=== PATIENT | male | born 1950 | race Caucasian/White ===

== ENCOUNTER 2021-05-05 07:17 | Observation (INO) | payer MEDICARE ==
[2021-05-03 11:35] LABS: BASOPHILS % 0.8 % (0.0-1.0); EOSINOPHILS # (AUTO) 0.2 (0.0-0.4); EOSINOPHILS % 3.2 % (0.0-6.0); HEMATOCRIT 41.8 % (38.2-49.6); HEMOGLOBIN 13.1 g/dL (14.0-18.0); MEAN CORPUSCULAR HGB CONC 31.3 g/dL (31-35); MEAN CORPUSCULAR VOLUME 79.9 fL (81-99); MONOCYTES # (AUTO) 0.4 (0.2-0.8); MONOCYTES % 8.4 % (4.4-11.3); NEUTROPHILS # (AUTO) 3.2 (2.1-6.9); PLATELET COUNT 183 x10e3/uL (140-360); RED BLOOD COUNT 5.23 x10e6/uL (4.3-5.7); RED CELL DISTRIBUTION WIDTH 14.9 % (11.7-14.4)
[2021-05-03 11:46] LABS: INR 0.92; PROTHROMBIN TIME 13.1 seconds (11.9-14.5)
[2021-05-03 11:47] LABS: PARTIAL THROMBOPLASTIN TIME 25.8 seconds (23.8-35.5)
[2021-05-03 11:54] LABS: ANION GAP 16.6 mmol/L (8-16); CALCIUM 8.9 mg/dL (8.4-10.2); CREATININE, SERUM 1.85 mg/dL (0.72-1.25); POTASSIUM 4.6 mmol/L (3.5-5.1)
[~2021-05-05] VITALS: Ht 172.7 cm; Wt 70.3 kg
[~2021-05-05 07:17] MED LIST: ACETAMINOPHEN 1000 MG/100 ML 100 ML IV ONE; ALEVE220 MG PO; ALTOPREV40 MG PO; GLIMEPIRIDE4 MG PO; LIDOCAINE 1% W/EPINEPHRINE 20 ML VIAL ONE; NOVOLOG MI100 UNIT/1 SC; THROMBIN FOR SOLN 5,000 UNIT VIAL ONE; ULTRAM 50MG50 MG PO; Vancomycin IV 1 GM VIAL ONE; ZEGRID PO
[2021-05-05] MEDS ORDERED: SODIUM CHLORIDE 0.9% 50ML 100 ML ONE (08:17)
[2021-05-05] MEDS ORDERED: EDARBI40 MG PO (08:30)
[2021-05-05] MEDS ORDERED: HYDROCODON-ACE1 EA12 PO (11:12)
[2021-05-05] MEDS ORDERED: TRAMADOL HCL 50 MG TAB PO SCH (11:15)
[2021-05-05] MEDS ORDERED: CEPACOL SORE THROAT LOZENGES PO PRN (11:15)
[2021-05-05] MEDS ORDERED: Morphine 10mg syringe 10 MG/ML INJ IM PRN (11:15)
[2021-05-05] MEDS ORDERED: CARISOPRODOL 350 MG TAB PO PRN (11:15)
[2021-05-05] MEDS ORDERED: ZOLPIDEM TARTRATE 5 MG TAB PO PRN (11:15)
[2021-05-05] MEDS ORDERED: PROMETHAZINE HCL (IM) 25 MG/ML VIAL IM PRN (11:15)
[2021-05-05] MEDS ORDERED: HYDROMORPHONE 2MG/ML 2 MG/ML ML IV PRN (11:15)
[2021-05-05] MEDS ORDERED: MAGNESIUM/ALUMINUM/SIMETHICONE 30 ML UDC PO PRN (11:15)
[2021-05-05] MEDS ORDERED: DEXTROSE 50% SYRINGE 50 ML IV PRN ×2 (11:15→17:45)
[2021-05-05] MEDS ORDERED: ACETAMINOPHEN 325 MG TAB PO PRN (11:15)
[2021-05-05 12:06] VITALS: BP 153/81
[2021-05-05 12:08] VITALS: BP 153/81
[2021-05-05] MEDS ORDERED: DEXAMETHASONE SOD PHOS INJ 4 MG/ML SDV ONE (12:50)
[2021-05-05] MEDS ORDERED: PROPOFOL IV EMULSION 10 MG/ML 20 ML VIAL ONE (12:50)
[2021-05-05] MEDS ORDERED: DESFLURANE 240 ML BTL INH ONE (12:50)
[2021-05-05] MEDS ORDERED: PHENYLEPHRINE HCL 1% 10 MG/ML VIAL ONE (12:50)
[2021-05-05] MEDS ORDERED: LIDOCAINE HCL 2% LOCAL INJ 5 ML SDV VIAL INJ ONE (12:50)
[2021-05-05] MEDS ORDERED: POVIDONE IODINE 0.05% 0.05 % ML PO ONE (12:50)
[2021-05-05] MEDS ORDERED: ROCURONIUM BROMIDE 10 MG/ML 5ML VIAL IV ONE (12:50)
[2021-05-05] MEDS ORDERED: ONDANSETRON HCL INJ 2MG/ML 2ML 2 MG/ML VIAL ONE (12:50)
[2021-05-05] MEDS: OXYCODONE/ACETAMINOPHEN 5-325 1 EACH TABLET PO PRN (13:15)
[2021-05-05] MEDS: LACTATED RINGER'S 1,000 ML IV SCH (15:27)
[2021-05-05] MEDS: INSULIN ASPART 70/30 100 UNITS/ML VIAL SC SCH (15:28)
[2021-05-05 15:57] VITALS: BP 140/85
[2021-05-05] MEDS: Cefazolin 1 GM in SODIUM CHLORIDE 0.9% 50ML 50 ML IV SCH (17:11)
[2021-05-05] MEDS ORDERED: MIDAZOLAM HCL 2 MG/2 ML VIAL ONE (17:16)
[2021-05-05] MEDS ORDERED: FENTANYL CITRATE/PF 100MCG/2 ML INJ ONE (17:16)
[2021-05-05] MEDS: ONDANSETRON HCL INJ 2MG/ML 2ML 2 MG/ML VIAL IV PRN ×2 (17:34→21:50)
[2021-05-05] MEDS: HYDROMORPHONE 2MG/ML 2 MG/ML ML IV PRN ×2 (17:35→21:50)
[2021-05-05 20:00] VITALS: BP 160/84
[2021-05-05 21:00] VITALS: BP 160/84
[2021-05-05] MEDS ORDERED: SIMVASTATIN 20 MG TAB PO SCH (21:00)
[2021-05-05] MEDS: INSULIN LISPRO 100 UNIT/1 ML 3ML VIAL SQ SCH (21:49)
[2021-05-06] VITALS: BP 165/80
[2021-05-06] MEDS: Cefazolin 1 GM in SODIUM CHLORIDE 0.9% 50ML 50 ML IV SCH ×2 (01:57→08:33)
[2021-05-06 04:00] VITALS: BP 155/81
[2021-05-06] MEDS: OXYCODONE/ACETAMINOPHEN 5-325 1 EACH TABLET PO PRN ×2 (04:10→08:15)
[2021-05-06] MEDS: INSULIN ASPART 70/30 100 UNITS/ML VIAL SC SCH (07:30)
[2021-05-06] MEDS: INSULIN LISPRO 100 UNIT/1 ML 3ML VIAL SQ SCH (07:30)
[2021-05-06] MEDS ORDERED: GLIMEPIRIDE 2 MG TAB PO SCH (08:00)
[2021-05-06 08:31] VITALS: BP 139/77
[2021-05-06] MEDS: LACTATED RINGER'S 1,000 ML IV SCH (08:34)
[2021-05-06] MEDS ORDERED: AZILSARTAN MEDOXOMIL PO SCH (09:00)
[2021-05-06 10:12] VITALS: BP 139/77
== END 2021-05-06 12:02 | disposition home or self-care (01) ==
LOC: OR 07:17 → PACU V 11:08 → MED/SURG 11:53
PROVIDERS: ADMIT Neurological Surgery; ATTEND Neurological Surgery
DX: M51.16 Intervertebral disc disorders with radiculopathy, lumbar region (principal); M48.062 Spinal stenosis, lumbar region with neurogenic claudication; M48.061 Spinal stenosis, lumbar region without neurogenic claudication; E11.9 Type 2 diabetes mellitus without complications; K21.9 Gastro-esophageal reflux disease without esophagitis; Z01.810 Encounter for preprocedural cardiovascular examination; Z01.812 Encounter for preprocedural laboratory examination; Z01.818 Encounter for other preprocedural examination; Z20.822 Contact with and (suspected) exposure to COVID-19
CPT/HCPCS: 36415 ×3; 63047; 63048; 71046; 72020; 80048; 82948 ×2; 85025; 85610; 85730; 86850; 86900; 88304; 93005; G0378 ×2; J0131; J0690 ×2; J1100; J1170; J1815; J2001; J2250; J2370; J2405 ×2; J2704; J3010; J3370; J7121; U0002

== ENCOUNTER 2021-09-09 10:27 | Inpatient (IN) | payer MEDICARE ==
[~2021-09-09] VITALS: Ht 172.7 cm; Wt 73.5 kg
[~2021-09-09 10:27] MED LIST changes: -ACETAMINOPHEN 1000 MG/100 ML 100 ML IV ONE; +EDARBI40 MG PO; +HYDROCODON-ACE1 EA12 PO; -LIDOCAINE 1% W/EPINEPHRINE 20 ML VIAL ONE; -THROMBIN FOR SOLN 5,000 UNIT VIAL ONE; -Vancomycin IV 1 GM VIAL ONE
[2021-09-09] MEDS ORDERED: DILTIAZEM HCL 5 MG/ML 5 ML VIAL IV ONE (10:45)
[2021-09-09] MEDS ORDERED: DILTIAZEM HCL 5 MG/ML 5 ML VIAL IV STA (11:09)
[2021-09-09 11:31] LABS: BASOPHILS # (AUTO) 0.1 (0.0-0.1); BASOPHILS % 0.6 % (0.0-1.0); EOSINOPHILS # (AUTO) 0.1 (0.0-0.4); EOSINOPHILS % 1.2 % (0.0-6.0); HEMATOCRIT 38.5 % (38.2-49.6); HEMOGLOBIN 12.2 g/dL (14.0-18.0); LYMPHOCYTES # (AUTO) 1.7 (1.0-3.2); LYMPHOCYTES % 16.9 % (18.0-39.1); MEAN CORPUSCULAR HGB CONC 31.7 g/dL (31-35); MEAN CORPUSCULAR VOLUME 82.1 fL (81-99); MONOCYTES # (AUTO) 0.9 (0.2-0.8); NEUTROPHILS % 71.8 % (38.7-80.0); PLATELET COUNT 209 x10e3/uL (140-360); RED BLOOD COUNT 4.69 x10e6/uL (4.3-5.7); RED CELL DISTRIBUTION WIDTH 15.7 % (11.7-14.4)
[2021-09-09] MEDS ORDERED: ASPIRIN 81 MG CHEW TAB PO ONE (11:45)
[2021-09-09 11:55] LABS: ALBUMIN 3.2 g/dL (3.5-5.0); ALBUMIN/GLOBULIN RATIO 0.9 (0.8-2.0); ANION GAP 12.8 mmol/L (8-16); CREATININE, SERUM 1.71 mg/dL (0.72-1.25); POTASSIUM 3.8 mmol/L (3.5-5.1)
[2021-09-09 13:35] VITALS: BP 131/89
[2021-09-09] MEDS ORDERED: HYDROCODONE/APAP 7.5MG-325MG 1 EA TAB PO PRN (14:45)
[2021-09-09] MEDS ORDERED: DEXTROSE 50% SYRINGE 50 ML IV PRN (15:00)
[2021-09-09] MEDS ORDERED: INSULIN LISPRO 100 UNIT/1 ML 3ML VIAL SQ SCH (16:30)
[2021-09-09 16:41] VITALS: BP 131/81
[2021-09-09] MEDS: INSULIN ASPART 70/30 100 UNITS/ML VIAL SC SCH (18:40)
[2021-09-09 19:52] LABS: CREATINE KINASE MB 14.5 ng/mL (0-5.0)
[2021-09-09 20:00] VITALS: BP 138/83
[2021-09-09] MEDS: TRAMADOL HCL 50 MG TAB PO PRN (20:33)
[2021-09-09] MEDS ORDERED: ENOXAPARIN 30 MG/0.3 ML SYR SC SCH (21:00)
[2021-09-09] MEDS ORDERED: SIMVASTATIN 20 MG TAB PO SCH (21:00)
[2021-09-09 21:10] VITALS: BP 138/83
[2021-09-10] VITALS (8 sets, daily range): BP systolic 113–165; BP diastolic 74–90
[2021-09-10] MEDS: ENOXAPARIN INJ 80 MG/0.8 ML SYR SC SCH ×3 (00:33→23:12)
[2021-09-10] MEDS: SODIUM CHLORIDE 0.9% 1000ML 1,000 ML IV SCH ×2 (04:41→17:35)
[2021-09-10 04:58] LABS: BASOPHILS % 0.4 % (0.0-1.0); EOSINOPHILS # (AUTO) 0.2 (0.0-0.4); EOSINOPHILS % 2.2 % (0.0-6.0); HEMATOCRIT 35.6 % (38.2-49.6); HEMOGLOBIN 11.2 g/dL (14.0-18.0); LYMPHOCYTES # (AUTO) 1.6 (1.0-3.2); LYMPHOCYTES % 23.2 % (18.0-39.1); MEAN CORPUSCULAR HEMOGLOBIN 26.1 pg (28-32); MEAN CORPUSCULAR HGB CONC 31.5 g/dL (31-35); MONOCYTES # (AUTO) 0.7 (0.2-0.8); MONOCYTES % 9.9 % (4.4-11.3); NEUTROPHILS # (AUTO) 4.3 (2.1-6.9); NEUTROPHILS % 64.2 % (38.7-80.0); PLATELET COUNT 174 x10e3/uL (140-360); RED BLOOD COUNT 4.29 x10e6/uL (4.3-5.7); RED CELL DISTRIBUTION WIDTH 15.6 % (11.7-14.4)
[2021-09-10 05:28] LABS: CREATINE KINASE MB 8.6 ng/mL (0-5.0)
[2021-09-10 05:55] LABS: ANION GAP 10.5 mmol/L (8-16); CREATININE, SERUM 1.46 mg/dL (0.72-1.25); POTASSIUM 4.5 mmol/L (3.5-5.1)
[2021-09-10] MEDS: INSULIN ASPART 70/30 100 UNITS/ML VIAL SC SCH ×2 (07:30→16:17)
[2021-09-10] MEDS: GLIMEPIRIDE 2 MG TAB PO SCH (08:00)
[2021-09-10] MEDS: AZILSARTAN MEDOXOMIL PO SCH (08:26)
[2021-09-10] MEDS: OMEPRAZOL/SOD BICARB 40MG PWDR PKT PO SCH (08:30)
[2021-09-10] MEDS: METOPROLOL TARTRATE 25 MG TAB PO SCH ×2 (08:41→20:44)
[2021-09-10] MEDS ORDERED: METOPROLOL TARTRATE 25 MG TAB PO SCH (09:00)
[2021-09-10] MEDS ORDERED: NON-FORMULARY MEDICATION (Lovastatin (Altoprev) 40 MG) PO SCH (09:00)
[2021-09-10 15:21] LABS: CREATINE KINASE MB 4.2 ng/mL (0-5.0)
[2021-09-10] MEDS ORDERED: ZOLPIDEM TARTRATE 10 MG TAB PO PRN (16:45)
[2021-09-10] MEDS: ATORVASTATIN 40 MG TAB PO SCH (20:43)
[2021-09-10] MEDS: ONDANSETRON HCL INJ 2MG/ML 2ML 2 MG/ML VIAL IV PRN (23:49)
[2021-09-11] VITALS (8 sets, daily range): BP systolic 105–169; BP diastolic 77–96
[2021-09-11] MEDS: SODIUM CHLORIDE 0.9% 1000ML 1,000 ML IV SCH ×2 (05:23→20:35)
[2021-09-11 05:58] LABS: CREATINE KINASE MB 3.2 ng/mL (0-5.0)
[2021-09-11] MEDS: INSULIN ASPART 70/30 100 UNITS/ML VIAL SC SCH ×2 (07:30→16:32)
[2021-09-11] MEDS: METOPROLOL TARTRATE 25 MG TAB PO SCH ×2 (08:58→20:34)
[2021-09-11] MEDS: OMEPRAZOL/SOD BICARB 40MG PWDR PKT PO SCH (08:58)
[2021-09-11] MEDS: GLIMEPIRIDE 2 MG TAB PO SCH (08:58)
[2021-09-11] MEDS: ASPIRIN 81 MG ENTERIC COATED PO SCH (08:58)
[2021-09-11] MEDS: AZILSARTAN MEDOXOMIL PO SCH (09:00)
[2021-09-11] MEDS: ONDANSETRON HCL INJ 2MG/ML 2ML 2 MG/ML VIAL IV PRN (09:02)
[2021-09-11] MEDS: ENOXAPARIN INJ 80 MG/0.8 ML SYR SC SCH ×2 (12:26→23:27)
[2021-09-11] MEDS: TRAMADOL HCL 50 MG TAB PO PRN (18:26)
[2021-09-11] MEDS: ATORVASTATIN 40 MG TAB PO SCH (20:34)
[2021-09-12 00:28] VITALS: BP 156/77
[2021-09-12 03:35] VITALS: BP 136/84
[2021-09-12] MEDS: INSULIN ASPART 70/30 100 UNITS/ML VIAL SC SCH ×2 (07:30→16:06)
[2021-09-12 07:52] VITALS: BP 146/88
[2021-09-12 08:05] VITALS: BP 146/88
[2021-09-12] MEDS: OMEPRAZOL/SOD BICARB 40MG PWDR PKT PO SCH (09:00)
[2021-09-12] MEDS ORDERED: LOSARTAN POTASSIUM 25 MG TAB PO SCH (09:00)
[2021-09-12] MEDS: SODIUM CHLORIDE 0.9% 1000ML 1,000 ML IV SCH (09:35)
[2021-09-12] MEDS ORDERED: VERAPAMIL HCL 2.5 MG/ML 2 ML VIAL ONE (10:56)
[2021-09-12] MEDS ORDERED: MIDAZOLAM HCL 2 MG/2 ML VIAL ONE (10:56)
[2021-09-12] MEDS ORDERED: HEPARIN SOD (PORCINE) 1000 UNIT/ML 30ML ONE (10:56)
[2021-09-12] MEDS ORDERED: FENTANYL CITRATE/PF 100MCG/2 ML INJ ONE (10:57)
[2021-09-12] MEDS ORDERED: HEPARIN SOD/SOD CHLORIDE 2,000 ML ONE (10:57)
[2021-09-12] MEDS ORDERED: LIDOCAINE HCL 2% LOCAL 20 ML VIAL ONE (10:57)
[2021-09-12] MEDS ORDERED: NITROGLYCERIN/D5W 200 MCG/ML 250 ML ONE (10:57)
[2021-09-12] MEDS ORDERED: SODIUM CHLORIDE 0.9% 1000ML 1,000 ML ONE (10:57)
[2021-09-12] MEDS ORDERED: IOPAMIDOL 370 MG/ML 100 ML INFUS..BTL INJ ONE (10:57)
[2021-09-12 10:59] VITALS: BP 130/83
[2021-09-12] MEDS: ENOXAPARIN INJ 80 MG/0.8 ML SYR SC SCH (13:05)
[2021-09-12] MEDS: GLIMEPIRIDE 2 MG TAB PO SCH (14:55)
[2021-09-12] MEDS: ASPIRIN 81 MG ENTERIC COATED PO SCH (14:55)
[2021-09-12] MEDS: METOPROLOL TARTRATE 25 MG TAB PO SCH (14:56)
[2021-09-12 15:50] VITALS: BP 139/95
[2021-10-13] MEDS ORDERED: CLOPIDOGREL75 MG PO (12:42)
[2021-10-13] MEDS ORDERED: LIPITOR20 MG PO (12:42)
[2021-10-13] MEDS ORDERED: CARVEDILOL3.125 MG PO (12:42)
[2021-10-13] MEDS ORDERED: ASPIRIN81 MG PO (12:42)
[2021-10-13] MEDS ORDERED: OMEPRAZOLE40 MG PO (12:42)
[2021-10-13] MEDS ORDERED: TRAZODONE HCL50 MG PO (12:42)
[2021-10-13] MEDS ORDERED: AMIODARONE HCL200 MG PO (12:42)
[2021-10-13] MEDS ORDERED: NEURONTIN100 MG PO (12:42)
== END 2021-09-12 18:57 | disposition short-term general hospital (02) | DRG 281 ==
LOC: ER 11:01 → ERHOLD 11:51 → MED/SURG 13:27
PROVIDERS: ADMIT Internal Medicine; ATTEND Internal Medicine
PROC: 4A023N7 Measurement of Cardiac Sampling and Pressure, Left Heart, Percutaneous Approach (ICD-10-PCS; principal; 2021-09-12)
PROC: B2151ZZ Fluoroscopy of Left Heart using Low Osmolar Contrast (ICD-10-PCS; 2021-09-12)
PROC: B2111ZZ Fluoroscopy of Multiple Coronary Arteries using Low Osmolar Contrast (ICD-10-PCS; 2021-09-12)
DX: I21.4 Non-ST elevation (NSTEMI) myocardial infarction (principal); I48.92 Unspecified atrial flutter; I48.91 Unspecified atrial fibrillation; E78.5 Hyperlipidemia, unspecified; E11.22 Type 2 diabetes mellitus with diabetic chronic kidney disease; I12.9 Hypertensive chronic kidney disease with stage 1 through stage 4 chronic kidney disease, or unspecified chronic kidney disease; N18.30 Chronic kidney disease, stage 3 unspecified; E78.00 Pure hypercholesterolemia, unspecified; I25.10 Atherosclerotic heart disease of native coronary artery without angina pectoris; K21.9 Gastro-esophageal reflux disease without esophagitis; Z88.5 Allergy status to narcotic agent; Z82.49 Family history of ischemic heart disease and other diseases of the circulatory system; Z79.82 Long term (current) use of aspirin; Z79.4 Long term (current) use of insulin; Z79.84 Long term (current) use of oral hypoglycemic drugs
CPT/HCPCS: 36415; 71045; 80048; 80053; 80061; 82550; 82553; 82948; 83880; 84443; 84484; 85025; 93005; 93306; 93458; 94799; 96360; 99152; 99284; C1887; J1644; J1650; J1815; J2001; J2250; J2405; J3010; J7030; Q9967; U0002

== ENCOUNTER 2021-10-31 12:07 | Inpatient (IN) | payer MEDICARE ==
[~2021-10-31] VITALS: Ht 172.7 cm; Wt 73.5 kg
[~2021-10-31 12:07] MED LIST changes: +AMIODARONE HCL200 MG PO; +ASPIRIN81 MG PO; +CARVEDILOL3.125 MG PO; +CLOPIDOGREL75 MG PO; +LIPITOR20 MG PO; +NEURONTIN100 MG PO; +OMEPRAZOLE40 MG PO; +TRAZODONE HCL50 MG PO
[2021-10-31 12:55] LABS: BASOPHILS # (AUTO) 0.1 (0.0-0.1); BASOPHILS % 0.7 % (0.0-1.0); EOSINOPHILS # (AUTO) 0.1 (0.0-0.4); EOSINOPHILS % 0.6 % (0.0-6.0); HEMATOCRIT 39.3 % (38.2-49.6); HEMOGLOBIN 12.3 g/dL (14.0-18.0); LYMPHOCYTES # (AUTO) 1.3 (1.0-3.2); LYMPHOCYTES % 10.2 % (18.0-39.1); MEAN CORPUSCULAR HGB CONC 31.3 g/dL (31-35); MEAN CORPUSCULAR VOLUME 79.9 fL (81-99); MONOCYTES # (AUTO) 0.8 (0.2-0.8); MONOCYTES % 6.4 % (4.4-11.3); NEUTROPHILS # (AUTO) 10.3 (2.1-6.9); NEUTROPHILS % 81.7 % (38.7-80.0); PLATELET COUNT 229 x10e3/uL (140-360); RED BLOOD COUNT 4.92 x10e6/uL (4.3-5.7); RED CELL DISTRIBUTION WIDTH 17.4 % (11.7-14.4)
[2021-10-31 13:11] LABS: ALBUMIN/GLOBULIN RATIO 0.7 (0.8-2.0); ANION GAP 16.3 mmol/L (8-16); CALCIUM 8.9 mg/dL (8.4-10.2); CREATININE, SERUM 1.92 mg/dL (0.72-1.25); POTASSIUM 4.3 mmol/L (3.5-5.1)
[2021-10-31] MEDS ORDERED: INSULIN REGULAR, HUMAN 100 UNIT/1 ML IV ONE (13:15)
[2021-10-31] MEDS ORDERED: SODIUM CHLORIDE 0.9% 500ML 500 ML IV ONE (13:30)
[2021-10-31] MEDS ORDERED: ONDANSETRON HCL INJ 2MG/ML 2ML 2 MG/ML VIAL IV PRN (15:30)
[2021-10-31] MEDS ORDERED: SODIUM CHLORIDE FLUSH 10 ML SYR INJ PRN (15:30)
[2021-10-31 20:00] VITALS: BP 132/79
[2021-10-31 20:27] VITALS: BP 132/74
[2021-10-31] MEDS: TRAZODONE HCL 50 MG TAB PO SCH (22:30)
[2021-10-31] MEDS: AMIODARONE HCL 200 MG TAB PO SCH (22:30)
[2021-10-31] MEDS: GABAPENTIN 100 MG CAP PO SCH (22:30)
[2021-10-31] MEDS: ATORVASTATIN 40 MG TAB PO SCH (22:30)
[2021-11-01] VITALS (7 sets, daily range): BP systolic 118–143; BP diastolic 72–96
[2021-11-01 05:49] LABS: BASOPHILS # (AUTO) 0.1 (0.0-0.1); BASOPHILS % 0.9 % (0.0-1.0); EOSINOPHILS # (AUTO) 0.2 (0.0-0.4); EOSINOPHILS % 2.2 % (0.0-6.0); HEMATOCRIT 35.8 % (38.2-49.6); HEMOGLOBIN 10.8 g/dL (14.0-18.0); LYMPHOCYTES # (AUTO) 1.3 (1.0-3.2); LYMPHOCYTES % 19.8 % (18.0-39.1); MEAN CORPUSCULAR HEMOGLOBIN 24.3 pg (28-32); MEAN CORPUSCULAR HGB CONC 30.2 g/dL (31-35); MEAN CORPUSCULAR VOLUME 80.6 fL (81-99); MONOCYTES # (AUTO) 0.5 (0.2-0.8); MONOCYTES % 7.6 % (4.4-11.3); NEUTROPHILS # (AUTO) 4.6 (2.1-6.9); NEUTROPHILS % 69.2 % (38.7-80.0); PLATELET COUNT 204 x10e3/uL (140-360); RED BLOOD COUNT 4.44 x10e6/uL (4.3-5.7); RED CELL DISTRIBUTION WIDTH 17.3 % (11.7-14.4)
[2021-11-01 06:23] LABS: ALBUMIN 2.7 g/dL (3.5-5.0); ALBUMIN/GLOBULIN RATIO 0.7 (0.8-2.0); ANION GAP 12.1 mmol/L (8-16); CALCIUM 8.8 mg/dL (8.4-10.2); CREATININE, SERUM 1.73 mg/dL (0.72-1.25); MAGNESIUM 1.9 MG/DL (1.3-2.1); POTASSIUM 4.1 mmol/L (3.5-5.1)
[2021-11-01] MEDS: INSULIN ASPART 70/30 100 UNITS/ML VIAL SC SCH ×2 (08:00→16:53)
[2021-11-01] MEDS: CARVEDILOL 3.125 MG TAB PO SCH ×2 (09:09→16:52)
[2021-11-01] MEDS: ASPIRIN 81 MG CHEW TAB PO SCH (09:09)
[2021-11-01] MEDS: AMIODARONE HCL 200 MG TAB PO SCH ×2 (09:09→16:52)
[2021-11-01] MEDS: GABAPENTIN 100 MG CAP PO SCH ×3 (09:10→21:00)
[2021-11-01] MEDS: CLOPIDOGREL BISULFATE 75 MG TAB PO SCH (09:10)
[2021-11-01] MEDS: PANTOPRAZOLE SOD 40 MG TABEC PO SCH (09:10)
[2021-11-01] MEDS ORDERED: SODIUM CHLORIDE 0.9% 1000ML 1,000 ML ONE (09:29)
[2021-11-01] MEDS: ONDANSETRON HCL INJ 2MG/ML 2ML 2 MG/ML VIAL IV PRN (09:49)
[2021-11-01] MEDS ORDERED: DEXTROSE 50% SYRINGE 50 ML IV PRN (12:30)
[2021-11-01] MEDS ORDERED: INSULIN LISPRO 100 UNIT/1 ML 3ML VIAL SQ SCH (16:30)
[2021-11-01] MEDS: INSULIN LISPRO 100 UNIT/1 ML 3ML VIAL SQ SCH ×2 (16:52→21:00)
[2021-11-01] MEDS: HYDROCODONE/APAP 10MG-325MG TAB PO PRN ×2 (18:09→22:34)
[2021-11-01] MEDS: ATORVASTATIN 40 MG TAB PO SCH (21:00)
[2021-11-01] MEDS: TRAZODONE HCL 50 MG TAB PO SCH (21:00)
[2021-11-02] VITALS (7 sets, daily range): BP systolic 123–176; BP diastolic 75–93
[2021-11-02] MEDS: HYDROCODONE/APAP 10MG-325MG TAB PO PRN ×4 (03:00→18:54)
[2021-11-02] MEDS: INSULIN ASPART 70/30 100 UNITS/ML VIAL SC SCH ×2 (08:10→16:23)
[2021-11-02] MEDS: INSULIN LISPRO 100 UNIT/1 ML 3ML VIAL SQ SCH ×4 (08:10→20:41)
[2021-11-02] MEDS: ASPIRIN 81 MG CHEW TAB PO SCH (08:47)
[2021-11-02] MEDS: CARVEDILOL 3.125 MG TAB PO SCH ×2 (08:48→16:42)
[2021-11-02] MEDS: CLOPIDOGREL BISULFATE 75 MG TAB PO SCH (08:48)
[2021-11-02] MEDS: PANTOPRAZOLE SOD 40 MG TABEC PO SCH (08:48)
[2021-11-02] MEDS: GABAPENTIN 100 MG CAP PO SCH ×3 (08:48→20:39)
[2021-11-02] MEDS: AMIODARONE HCL 200 MG TAB PO SCH ×2 (08:48→16:41)
[2021-11-02] MEDS: ONDANSETRON HCL INJ 2MG/ML 2ML 2 MG/ML VIAL IV PRN (12:03)
[2021-11-02] MEDS ORDERED: ONDANSETRON HCL 4 MG ORAL DISINTEGRATING TAB PO PRN (14:30)
[2021-11-02] MEDS: TRAZODONE HCL 50 MG TAB PO SCH (20:39)
[2021-11-02] MEDS: ATORVASTATIN 40 MG TAB PO SCH (20:39)
[2021-11-03] VITALS (7 sets, daily range): BP systolic 112–172; BP diastolic 77–89
[2021-11-03 06:21] LABS: EOSINOPHILS # (AUTO) 0.2 (0.0-0.4); EOSINOPHILS % 4.3 % (0.0-6.0); HEMATOCRIT 35.2 % (38.2-49.6); HEMOGLOBIN 10.6 g/dL (14.0-18.0); LYMPHOCYTES % 24.8 % (18.0-39.1); MEAN CORPUSCULAR HEMOGLOBIN 24.6 pg (28-32); MEAN CORPUSCULAR HGB CONC 30.1 g/dL (31-35); MEAN CORPUSCULAR VOLUME 81.7 fL (81-99); MONOCYTES # (AUTO) 0.3 (0.2-0.8); MONOCYTES % 7.4 % (4.4-11.3); NEUTROPHILS # (AUTO) 2.6 (2.1-6.9); NEUTROPHILS % 62.3 % (38.7-80.0); PLATELET COUNT 195 x10e3/uL (140-360); RED BLOOD COUNT 4.31 x10e6/uL (4.3-5.7); RED CELL DISTRIBUTION WIDTH 17.1 % (11.7-14.4)
[2021-11-03 07:06] LABS: ALBUMIN 2.7 g/dL (3.5-5.0); ALBUMIN/GLOBULIN RATIO 0.8 (0.8-2.0); ANION GAP 10.4 mmol/L (8-16); CALCIUM 8.6 mg/dL (8.4-10.2); CREATININE, SERUM 1.54 mg/dL (0.72-1.25); MAGNESIUM 1.8 MG/DL (1.3-2.1); POTASSIUM 4.4 mmol/L (3.5-5.1)
[2021-11-03] MEDS: HYDROCODONE/APAP 10MG-325MG TAB PO PRN (08:22)
[2021-11-03] MEDS: ASPIRIN 81 MG CHEW TAB PO SCH (08:22)
[2021-11-03] MEDS: CLOPIDOGREL BISULFATE 75 MG TAB PO SCH (08:23)
[2021-11-03] MEDS: AMIODARONE HCL 200 MG TAB PO SCH ×2 (08:23→17:55)
[2021-11-03] MEDS: CARVEDILOL 3.125 MG TAB PO SCH ×2 (08:23→17:55)
[2021-11-03] MEDS: GABAPENTIN 100 MG CAP PO SCH ×3 (08:23→21:00)
[2021-11-03] MEDS: PANTOPRAZOLE SOD 40 MG TABEC PO SCH (08:23)
[2021-11-03] MEDS: INSULIN LISPRO 100 UNIT/1 ML 3ML VIAL SQ SCH ×4 (08:30→21:00)
[2021-11-03] MEDS: ONDANSETRON HCL INJ 2MG/ML 2ML 2 MG/ML VIAL IV PRN ×3 (08:33→18:13)
[2021-11-03] MEDS: INSULIN ASPART 70/30 100 UNITS/ML VIAL SC SCH ×2 (08:45→17:30)
[2021-11-03] MEDS ORDERED: BISACODYL 5 MG TAB EC PO PRN (16:45)
[2021-11-03] MEDS ORDERED: BISACODYL 5 MG TAB EC PO ONE (17:15)
[2021-11-03] MEDS: TRAZODONE HCL 50 MG TAB PO SCH (21:00)
[2021-11-03] MEDS: ATORVASTATIN 40 MG TAB PO SCH (21:00)
[2021-11-04 00:03] VITALS: BP 140/76
[2021-11-04 00:56] VITALS: BP 140/76
[2021-11-04 03:50] VITALS: BP 148/81
[2021-11-04] MEDS: INSULIN LISPRO 100 UNIT/1 ML 3ML VIAL SQ SCH (07:30)
[2021-11-04] MEDS ORDERED: KEFLEX125 MG/5 M PO (07:54)
[2021-11-04 08:00] VITALS: BP 145/81
[2021-11-04] MEDS: INSULIN ASPART 70/30 100 UNITS/ML VIAL SC SCH (09:00)
[2021-11-04] MEDS: CARVEDILOL 3.125 MG TAB PO SCH (09:00)
[2021-11-04] MEDS: AMIODARONE HCL 200 MG TAB PO SCH (09:00)
[2021-11-04] MEDS: CLOPIDOGREL BISULFATE 75 MG TAB PO SCH (09:00)
[2021-11-04] MEDS: PANTOPRAZOLE SOD 40 MG TABEC PO SCH (09:00)
[2021-11-04] MEDS: GABAPENTIN 100 MG CAP PO SCH (09:00)
[2021-11-04] MEDS: ASPIRIN 81 MG CHEW TAB PO SCH (09:00)
== END 2021-11-04 09:25 | disposition home or self-care (01) | DRG 551 ==
LOC: ER 13:30 → ERHOLD 15:20 → MED/SURG2 18:25
PROVIDERS: ADMIT Internal Medicine; ATTEND Internal Medicine
DX: M47.816 Spondylosis without myelopathy or radiculopathy, lumbar region (principal); J18.9 Pneumonia, unspecified organism; E87.2 Acidosis; N17.9 Acute kidney failure, unspecified; E87.1 Hypo-osmolality and hyponatremia; I25.10 Atherosclerotic heart disease of native coronary artery without angina pectoris; I13.10 Hypertensive heart and chronic kidney disease without heart failure, with stage 1 through stage 4 chronic kidney disease, or unspecified chronic kidney disease; E11.22 Type 2 diabetes mellitus with diabetic chronic kidney disease; N18.30 Chronic kidney disease, stage 3 unspecified; E78.5 Hyperlipidemia, unspecified; I48.91 Unspecified atrial fibrillation; E11.65 Type 2 diabetes mellitus with hyperglycemia; Z95.1 Presence of aortocoronary bypass graft; Z85.6 Personal history of leukemia; Z88.5 Allergy status to narcotic agent; Z79.82 Long term (current) use of aspirin; Z79.4 Long term (current) use of insulin; Z79.84 Long term (current) use of oral hypoglycemic drugs; Z20.822 Contact with and (suspected) exposure to COVID-19
CPT/HCPCS: 36415; 70450; 71045; 80053; 82948; 83735; 84484; 85025; 87040; 93005; 94799; 96372; 99284; J0696; J1815; J2405; J7030; Q0162; U0002

== ENCOUNTER 2021-11-11 13:53 | Emergency (ER) | payer MEDICARE ==
[~2021-11-11] VITALS: Ht 170.2 cm; Wt 68.0 kg
[~2021-11-11 13:53] MED LIST changes: +KEFLEX125 MG/5 M PO
[2021-11-11] MEDS ORDERED: ONDANSETRON HCL INJ 2MG/ML 2ML 2 MG/ML VIAL IV STA (14:31)
[2021-11-11] MEDS ORDERED: SODIUM CHLORIDE 0.9% 1000ML 1,000 ML IV SCH (14:45)
[2021-11-11] MEDS ORDERED: ONDANSETRON HCL INJ 2MG/ML 2ML 2 MG/ML VIAL ONE (14:50)
[2021-11-11 14:53] LABS: BASOPHILS % 0.5 % (0.0-1.0); EOSINOPHILS # (AUTO) 0.2 (0.0-0.4); EOSINOPHILS % 2.3 % (0.0-6.0); HEMATOCRIT 41.1 % (38.2-49.6); HEMOGLOBIN 12.6 g/dL (14.0-18.0); LYMPHOCYTES # (AUTO) 1.3 (1.0-3.2); LYMPHOCYTES % 19.2 % (18.0-39.1); MEAN CORPUSCULAR HEMOGLOBIN 24.7 pg (28-32); MEAN CORPUSCULAR HGB CONC 30.7 g/dL (31-35); MEAN CORPUSCULAR VOLUME 80.6 fL (81-99); MONOCYTES # (AUTO) 0.5 (0.2-0.8); MONOCYTES % 6.9 % (4.4-11.3); NEUTROPHILS # (AUTO) 4.6 (2.1-6.9); NEUTROPHILS % 70.6 % (38.7-80.0); PLATELET COUNT 207 x10e3/uL (140-360); RED CELL DISTRIBUTION WIDTH 17.3 % (11.7-14.4)
[2021-11-11 14:59] LABS: CLARITY,URINE SL CLOUDY (CLEAR); COLOR,URINE AMBER (YELLOW); KETONES,URINE TRACE (NEGATIVE); LEUKOCYTE ESTERASE ,URINE NEGATIVE (NEGATIVE); NITRITE,URINE NEGATIVE (NEGATIVE); PROTEIN,URINE DIPSTICK >=300 (NEGATIVE); URINE UROBILINOGEN 0.2 mg/dL (0.2 - 1)
[2021-11-11 15:08] LABS: AMYLASE 69 U/L (25-125); LIPASE 28 U/L (8-78)
[2021-11-11 15:12] LABS: BACTERIA,URINE MODERATE /HPF
[2021-11-11 15:16] LABS: CREATINE KINASE MB 1.8 ng/mL (0-5.0)
[2021-11-11 15:19] LABS: ALBUMIN 3.5 g/dL (3.5-5.0); ALBUMIN/GLOBULIN RATIO 0.8 (0.8-2.0); ANION GAP 18.4 mmol/L (8-16); CREATININE, SERUM 1.78 mg/dL (0.72-1.25); POTASSIUM 4.4 mmol/L (3.5-5.1)
[2021-11-11] MEDS ORDERED: SODIUM CHLORIDE 0.9% 1000ML 1,000 ML IV STA (15:41)
[2021-11-11] MEDS ORDERED: IOPAMIDOL 370 MG/ML 100 ML INFUS..BTL INJ ONE (17:27)
[2021-11-11] MEDS ORDERED: ONDANSETRON ODT8 MG PO (17:52)
== END 2021-11-11 19:00 | disposition home or self-care (01) ==
LOC: ER 14:04 → MERGE 14:04 → ER 19:00
DX: R11.2 Nausea with vomiting, unspecified (principal); E11.65 Type 2 diabetes mellitus with hyperglycemia; I10 Essential (primary) hypertension; E78.5 Hyperlipidemia, unspecified; K21.9 Gastro-esophageal reflux disease without esophagitis; I25.10 Atherosclerotic heart disease of native coronary artery without angina pectoris; Z95.1 Presence of aortocoronary bypass graft
CPT/HCPCS: 36415; 74177; 80053; 81001; 82150; 82550; 82553; 83690; 84484; 85025; 99284; J2405; J7030; Q9967

== ENCOUNTER → 2023-05-08 | Outpatient (REF) | payer MEDICARE ==
[~2023-05-08] MED LIST changes: +AMIODARONE HCL200 MG OD; +ATORVASTATIN CA80 MG PO; +AZITHROMYCIN250 MG PO; +INSULIN AS100 UNIT/4 SC; +NORTRIPTYLINE H25 MG PO; +ONDANSETRON ODT8 MG PO; +PIOGLITAZONE HC15 MG PO; +REGLAN10 MG PO; +TAMSULOSIN PO; +TEMAZEPAM30 MG PO
== END ==
LOC: MRI 07:27
PROVIDERS: ATTEND Podiatrist Foot & Ankle Surgery
DX: M86.9 Osteomyelitis, unspecified (principal)